=== PATIENT | female | born 1970 | race Caucasian/White ===

== ENCOUNTER 2017-02-03 20:24 | Emergency (ER) | payer BC ==
[~2017-02-03 20:24] MED LIST: ALBU8I INH; CEPH500 PO; DOXY100T PO
[2017-02-03 20:25] VITALS: BP 111/70; PULSE 68; RESP 16; TEMP 98.4; O2SAT 96
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
[2017-02-03] MEDS ORDERED: ACETAMINOPHEN 325 MG TAB PO ONE (21:15)
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
== END 2017-02-03 21:36 | disposition home or self-care (01) ==
LOC: NEPK 20:24
DX: S09.90XA Unspecified injury of head, initial encounter (principal); F17.200 Nicotine dependence, unspecified, uncomplicated; Z87.09 Personal history of other diseases of the respiratory system; Y04.2XXA Assault by strike against or bumped into by another person, initial encounter
CPT/HCPCS: 99283

== ENCOUNTER 2017-06-02 20:08 | Emergency (ER) | payer SELFPAY ==
[~2017-06-02] VITALS: Ht 172.7 cm; Wt 54.5 kg
[2017-06-02 20:10] VITALS: BP 147/90; PULSE 77; RESP 15; TEMP 98.4; O2SAT 98
--- NOTE | 2017-06-02 20:28 | PD ---
Physical Exam Time Seen by Provider: 20:26 Narrative 47yo F c/o left arm pain x 3 weeks. Says she has chronic left shoulder dislocation and degenerative arthritis. Denies injury. +numbness, tingling. Denies chest pain, SOB. Patient noted using arm while in triage. Patient seen in triage. VS reviewed. Patient awaiting bed placement. Data Data Last Documented VS Vital Signs Date Time Temp Pulse Resp B/P (MAP) Pulse Ox O2 Delivery O2 Flow Rate FiO2 06/02/17 20:10 98.4 77 15 147/90 (109) 98 Room Air MDM Supervised Visit with MARIA M: Vidhi Randhawa Jun 02, 2017 20:28
[2017-06-02] MEDS ORDERED: KETOROLAC TROMETHAMINE 60 MG/2 ML (IM) VIAL IM ONE (21:00)
--- NOTE | 2017-06-02 21:11 | PD ---
HPI Chief Complaint: Pain: Acute or Chronic Time Seen by Provider: 20:55 Travel History International Travel<30 days: No Contact w/Intl Traveler<30days: No Traveled to known affect area: No History of Present Illness HPI 47-year-old female presents for evaluation of left shoulder pain, left arm paresthesias. She reports that this is a chronic issue has been ongoing for 10 years. The paresthesias have gradually developed over the past several months. She reports that she has been diagnosed with left shoulder subluxation and degenerative joint disease. She reports that she is currently homeless, sleeping in a tent on the ground, and feels that she is reinjuring her left shoulder simply by the way she is sleeping. She denies any acute trauma. She reports that she has had worsened numbness in her left arm today and this prompted evaluation. She denies any neck pain, headache, blurred vision, slurred speech, facial droop. She has no other complaints. PFSH Past Medical History Asthma: Yes COPD: Yes Diminished Hearing: No Respiratory: Yes (asthma, emphysema, COPD) Immunizations Current: Yes Tetanus Vaccination: < 5 Years Influenza Vaccination: No ?: Not Menopausal: Yes Past Surgical History Cholecystectomy: Yes Hysterectomy: Yes Social History Alcohol Use: No Tobacco Use: Yes (1 PPD) Substance Use: Yes (marijuana) Allergies-Medications (Allergen,Severity, Reaction): Coded Allergies: adhesive (Unverified Allergy, Severe, 06/02/17) haloperidol (Unverified Allergy, Severe, Hallucinations, 06/02/17) latex (Unverified Allergy, Severe, 06/02/17) metronidazole (Unverified Allergy, Severe, Nausea/Vomiting, 06/02/17) sulfamethoxazole (Unverified Allergy, Severe, Hives, 06/02/17) sumatriptan (Unverified Allergy, Severe, Nausea/Vomiting, 06/02/17) trimethoprim (Unverified Allergy, Severe, Hives, 06/02/17) Reported Meds & Prescriptions Reported Meds & Active Scripts Active No Active Prescriptions or Reported Medications Review of Systems Except as stated in HPI: all other systems reviewed are Neg Physical Exam Narrative GENERAL: Well-developed well-nourished female in no acute distress SKIN: Warm and dry. HEAD: Atraumatic. Normocephalic. EYES: Pupils equal and round. No scleral icterus. No injection or drainage. ENT: No nasal bleeding or discharge. Mucous membranes pink and moist. NECK: Trachea midline. No JVD. CARDIOVASCULAR: Regular rate and rhythm. No murmur appreciated. RESPIRATORY: No accessory muscle use. Clear to auscultation. Breath sounds equal bilaterally. GASTROINTESTINAL: Abdomen soft, non-tender, nondistended. MUSCULOSKELETAL: No obvious deformities. Generalized tenderness to palpation to the left shoulder joint. The patient has pain with left shoulder range of motion however she has normal data center manager strength, 5 out of 5 muscle strength and arm flexion and extension bilaterally with no objective weakness. There is no tenderness to palpation along the cervical spine. She maintains full range of motion of the neck. NEUROLOGICAL: Awake and alert. No obvious cranial nerve deficits. Motor grossly within normal limits. Normal speech. Data Data Last Documented VS Vital Signs Date Time Temp Pulse Resp B/P (MAP) Pulse Ox O2 Delivery O2 Flow Rate FiO2 06/02/17 20:10 98.4 77 15 147/90 (109) 98 Room Air Orders Orders Ct Cerv Spine W/O Contrast (06/02/17 ) Shoulder, Complete (>2vws) (06/02/17 ) Ketorolac Inj (Toradol Inj) (06/02/17 21:00) MDM Medical Decision Making Medical Screen Exam Complete: Yes Emergency Medical Condition: Yes Medical Record Reviewed: Yes Differential Diagnosis Shoulder subluxation, brachial plexopathy, cervical radiculopathy, herniated nucleus pulposus, thoracic outlet syndrome, CVA Narrative Course 47-year-old female with chronic left shoulder pain for several years as well as paresthesias in her left forearm for several years presents with worsening paresthesias today. On examination she has no objective weakness in the upper extremities and she has no focal neurologic deficits. There is nothing to suggest a CVA. Her symptoms seem to be primarily related to her left shoulder pain. She reports that sleeping on the ground has been exacerbating her chronic left shoulder pain and she is requesting a sling to help raise her left shoulder up and help supported passively. The x-ray reveals no acute abnormalities. The patient refuses CT of the cervical spine and became increasingly agitated and requested to leave. While attempting to explain the reasoning behind neuro imaging of the cervical spine in relation to paresthesias/subjective weakness in the left arm, the patient became increasingly argumentative and agitated and continued to refuse any additional testing and simply wanted to leave. She shouted obscenities on her way out. She left AGAINST MEDICAL ADVICE. Diagnosis Primary Impression: Left against medical advice Med/Other Pt SpecificInfo: No Change to Meds Scripts No Active Prescriptions or Reported Meds Disposition: 07 AGAINST MEDICAL ADVICE Condition: Stable Orlnado Ayers Jun 02, 2017 21:11
--- NOTE | 2017-06-02 21:12 | RADRPT ---
EXAM DATE/TIME: 06/02/2017 21:11 [facility] COMPARISON: SHOULDER LEFT COMPLETE (>2VWS), November 08, 2015, 12:00. INDICATIONS : Shoulder pain, numbness down to left hand. MEDICAL HISTORY : None. SURGICAL HISTORY : None. ENCOUNTER: Initial ACUITY: 1 day PAIN SCORE: 0/10 LOCATION: Left shoulder FINDINGS: Multiple view examination of the left shoulder demonstrates no evidence of fracture or dislocation. The glenohumeral and acromioclavicular joints are maintained. There is normal range of motion betwee n internal and external rotation. Bony mineralization is normal. Calcified granulomas in the left phuc ng. These are stable compared to the prior study. CONCLUSION: Unremarkable and stable exam of the shoulder. Octavio Orellana MD on June 02, 2017 at 21:10 Board Certified Radiologist. This report was verified electronically.
== END 2017-06-02 22:21 | disposition left against medical advice (07) ==
LOC: NEPD 20:08
DX: M25.512 Pain in left shoulder (principal); R20.9 Unspecified disturbances of skin sensation; J45.909 Unspecified asthma, uncomplicated; J44.9 Chronic obstructive pulmonary disease, unspecified; F17.200 Nicotine dependence, unspecified, uncomplicated; Z88.2 Allergy status to sulfonamides; Z88.8 Allergy status to other drugs, medicaments and biological substances
CPT/HCPCS: 73030; 96372; 99284; J1885

== ENCOUNTER 2017-06-15 20:16 | Emergency (ER) | payer SELFPAY ==
[~2017-06-15] VITALS: Ht 175.3 cm; Wt 55.0 kg
[2017-06-15 20:17] VITALS: BP 118/78; PULSE 104; RESP 16; TEMP 99.8; O2SAT 95
[2017-06-15 21:29] LABS: BACTERIA, URINE MANY /hpf; BLOOD, URINE LARGE (NEG); COMMENT (UR) CULTURE INDICATED; CULTURE IF INDICATED CULTURE INDICATED; GLUCOSE,URINE NEG (NEG); KETONE, URINE 10 mg/dL (NEG); MUCUS URINE MANY /lpf (OCC); NITRITE,URINE NEG (NEG); SQUAMOUS EPITHELIAL CELL URINE 6 /hpf (0-5); TRANSITIONAL EPI CELLS, URINE 1 /hpf; URINE COLOR YELLOW (YELLW/STRAW)
[2017-06-15] MEDS ORDERED: ONDANSETRON HCL 4 MG/2 ML VIAL IV PUSH ONE (22:00)
[2017-06-15] MEDS ORDERED: cefTRIAXone INJ 1,000 MG in SODIUM CHLORIDE 0.9% INJ 100 ML IV ONE (22:00)
[2017-06-15] MEDS ORDERED: PHENAZOPYRIDINE HCL 200 MG TAB PO ONE (22:00)
--- NOTE | 2017-06-15 22:01 | PD ---
HPI Chief Complaint: Complaint Time Seen by Provider: 21:51 Travel History International Travel<30 days: No Contact w/Intl Traveler<30days: No Traveled to known affect area: No History of Present Illness HPI 47-year-old white female presents to emergency Department with complaints of worsening bladder infection. She states that she was seen at [facility] approximately 5 days ago she was given a prescription for Macrobid and Zofran which she has not filled yet. She states that she was given a dose of antibiotics before being discharged. She states that she has had increasing lower pelvic and bladder discomfort. She's had increased urinary frequency, urgency, nausea and decreased appetite. She states that she's not been able to eat or drink anything over last several days. She states that she is also having worsening lower back pain. Symptoms are moderate but can be more severe at times. Worse with movement. PFSH Past Medical History Asthma: Yes COPD: Yes Diminished Hearing: No Respiratory: Yes (asthma, emphysema, COPD) Immunizations Current: Yes ?: Not Menopausal: Yes Past Surgical History Cholecystectomy: Yes Hysterectomy: Yes Social History Alcohol Use: No Tobacco Use: Yes (1 PPD) Substance Use: Yes (marijuana) Allergies-Medications (Allergen,Severity, Reaction): Coded Allergies: adhesive (Unverified Allergy, Severe, 06/15/17) haloperidol (Unverified Allergy, Severe, Hallucinations, 06/15/17) latex (Unverified Allergy, Severe, 06/15/17) metronidazole (Unverified Allergy, Severe, Nausea/Vomiting, 06/15/17) sulfamethoxazole (Unverified Allergy, Severe, Hives, 06/15/17) sumatriptan (Unverified Allergy, Severe, Nausea/Vomiting, 06/15/17) trimethoprim (Unverified Allergy, Severe, Hives, 06/15/17) Reported Meds & Prescriptions Reported Meds & Active Scripts Active Zofran Odt (Ondansetron Odt) 4 Mg Tab 4 Mg SL Q6HR PRN Pyridium (Phenazopyridine HCl) 100 Mg Tab 200 Mg PO Q8H PRN 3 Days Macrobid (Nitrofurantoin Monohydrate Macrocrystals) 100 Mg Capsule 100 Mg PO BID 10 Days Review of Systems Except as stated in HPI: all other systems reviewed are Neg Physical Exam Narrative GENERAL: Well-developed, well-nourished in no acute distress. Nontoxic appearing. HEAD: Normocephalic, atraumatic. EYES: Pupils equal round and reactive. Extraocular motions intact. No scleral icterus. No injection or drainage. ENT: TMs clear without erythema. The external auditory canals clear. Nose: clear . Posterior pharynx is pink and moist. No tonsillar edema or exudate. Uvula midline. Airway patent. NECK: Trachea midline.Supple, nontender, moves head freely. No central bony tenderness or spasm. CARDIOVASCULAR: Regular rate and rhythm without murmurs, gallops, or rubs. RESPIRATORY: Clear to auscultation. Breath sounds equal bilaterally. No wheezes , rales, or rhonchi. GASTROINTESTINAL: Abdomen soft, non-tender, nondistended. No hepato-splenomegaly , or palpable masses. No guarding. EXTREMITIES: No clubbing, cyanosis, or edema. No joint tenderness, effusion, or edema noted. BACK: Patient complains of tenderness in the lower lumbar spine without deformity or crepitance. Patient has mild left flank tenderness. Data Data Last Documented VS Vital Signs Date Time Temp Pulse Resp B/P (MAP) Pulse Ox O2 Delivery O2 Flow Rate FiO2 06/15/17 20:17 99.8 104 16 118/78 (91) 95 Room Air Orders Orders Urinalysis - C+S If Indicated (06/15/17 20:48) Urine Culture (06/15/17 21:04) Complete Blood Count With Diff (06/15/17 21:55) Basic Metabolic Panel (Bmp) (06/15/17 21:55) Iv Access Insert/Monitor (06/15/17 21:55) Ceftriaxone Inj (Rocephin Inj) (06/15/17 22:00) Ondansetron Inj (Zofran Inj) (06/15/17 22:00) Phenazopyridine (Pyridium) (06/15/17 22:00) Labs Laboratory Tests Test 06/15/17 21:04 06/15/17 22:20 Urine Color YELLOW Urine Turbidity HAZY Urine pH 6.0 Urine Specific [place] 1.024 Urine Protein 100 mg/dL Urine Glucose (UA) NEG mg/dL Urine Ketones 10 mg/dL Urine Occult Blood LARGE Urine Nitrite NEG Urine Bilirubin NEG Urine Urobilinogen 2.0 MG/DL Urine Leukocyte Esterase LARGE Urine RBC 85 /hpf Urine WBC /hpf Urine Squamous Epithelial Cells 6 /hpf Urine Transitional Epithelial Cells 1 /hpf Urine Amorphous Sediment RARE Urine Bacteria MANY /hpf Urine Mucus MANY /lpf Microscopic Urinalysis Comment CULTURE INDICATED White Blood Count 10.6 TH/MM3 Red Blood Count 3.96 MIL/MM3 Hemoglobin 12.8 GM/DL Hematocrit 35.9 % Mean Corpuscular Volume 90.7 FL Mean Corpuscular Hemoglobin 32.5 PG Mean Corpuscular Hemoglobin Concent 35.8 % Red Cell Distribution Width 14.0 % Platelet Count 287 TH/MM3 Mean Platelet Volume 8.8 FL Neutrophils (%) (Auto) 67.9 % Lymphocytes (%) (Auto) 15.7 % Monocytes (%) (Auto) 15.6 % Eosinophils (%) (Auto) 0.6 % Basophils (%) (Auto) 0.2 % Neutrophils # (Auto) 7.2 TH/MM3 Lymphocytes # (Auto) 1.7 TH/MM3 Monocytes # (Auto) 1.7 TH/MM3 Eosinophils # (Auto) 0.1 TH/MM3 Basophils # (Auto) 0.0 TH/MM3 CBC Comment AUTO DIFF MDM Medical Decision Making Medical Screen Exam Complete: Yes Emergency Medical Condition: Yes Medical Record Reviewed: Yes Interpretation(s) Laboratory Tests Test 06/15/17 21:04 06/15/17 22:20 Urine Color YELLOW Urine Turbidity HAZY Urine pH 6.0 Urine Specific [place] 1.024 Urine Protein 100 mg/dL Urine Glucose (UA) NEG mg/dL Urine Ketones 10 mg/dL Urine Occult Blood LARGE Urine Nitrite NEG Urine Bilirubin NEG Urine Urobilinogen 2.0 MG/DL Urine Leukocyte Esterase LARGE Urine RBC 85 /hpf Urine WBC /hpf Urine Squamous Epithelial Cells 6 /hpf Urine Transitional Epithelial Cells 1 /hpf Urine Amorphous Sediment RARE Urine Bacteria MANY /hpf Urine Mucus MANY /lpf Microscopic Urinalysis Comment CULTURE INDICATED White Blood Count 10.6 TH/MM3 Red Blood Count 3.96 MIL/MM3 Hemoglobin 12.8 GM/DL Hematocrit 35.9 % Mean Corpuscular Volume 90.7 FL Mean Corpuscular Hemoglobin 32.5 PG Mean Corpuscular Hemoglobin Concent 35.8 % Red Cell Distribution Width 14.0 % Platelet Count 287 TH/MM3 Mean Platelet Volume 8.8 FL Neutrophils (%) (Auto) 67.9 % Lymphocytes (%) (Auto) 15.7 % Monocytes (%) (Auto) 15.6 % Eosinophils (%) (Auto) 0.6 % Basophils (%) (Auto) 0.2 % Neutrophils # (Auto) 7.2 TH/MM3 Lymphocytes # (Auto) 1.7 TH/MM3 Monocytes # (Auto) 1.7 TH/MM3 Eosinophils # (Auto) 0.1 TH/MM3 Basophils # (Auto) 0.0 TH/MM3 CBC Comment AUTO DIFF Differential Diagnosis MDM: Pyelonephritis, UTI, vaginitis Narrative Course IV access is obtained. Patient's given 1 g of Rocephin IV. Zofran 4 mg IV. Pyridium 200 mg by mouth. Patient laboratory tests 7 reviewed. This is pyelonephritis Diagnosis Primary Impression: Pyelonephritis Patient Instructions: General Instructions Additional Instructions: Rest. Increase fluids. Macrobid and Pyridium. Zofran for nausea. Follow-up with a primary care doctor in one week. Return to the ER for any problems. Med/Other Pt SpecificInfo: Prescription(s) given Scripts Ondansetron Odt (Zofran Odt) 4 Mg Tab 4 MG SL Q6HR Y for Nausea/Vomiting, #6 TAB 0 Refills Prov: Kermit Chamorro MD 06/15/17 Phenazopyridine (Pyridium) 100 Mg Tab 200 MG PO Q8H Y for DYSURIA for 3 Days, TAB 0 Refills Prov: Kermit Chamorro MD 06/15/17 Nitrofurantoin Monohydrate Macrocrystals (Macrobid) 100 Mg Capsule 100 MG PO BID for Infection for 10 Days, CAP 0 Refills Prov: Kermit Chamorro MD 06/15/17 Disposition: 01 DISCHARGE HOME Condition: Stable Speedy Guaman Jun 15, 2017 22:01
[2017-06-15 22:36] LABS: AUTOMATED NEUTROPHIL # 7.2 TH/MM3 (1.8-7.7); BASOPHIL % 0.2 % (0.0-2.0); EOSINOPHIL # 0.1 TH/MM3 (0-0.4); EOSINOPHIL % 0.6 % (0.0-4.0); HEMATOCRIT 35.9 % (35.0-46.0); LYMPH % 15.7 % (9.0-44.0); LYMPHOCYTE # 1.7 TH/MM3 (1.0-4.8); MEAN CELL VOLUME 90.7 FL (80.0-100.0); MEAN CORPUSCULAR HEMOGLOBIN 32.5 PG (27.0-34.0); MEAN CORPUSCULAR HGB CONC 35.8 % (32.0-36.0); MONO % 15.6 % (0.0-8.0); NEUT % 67.9 % (16.0-70.0); PLATELET COUNT 287 TH/MM3 (150-450); RED BLOOD COUNT 3.96 MIL/MM3 (4.00-5.30); WHITE BLOOD COUNT 10.6 TH/MM3 (4.0-11.0)
[2017-06-15] MEDS ORDERED: MACR100C2 PO (22:36)
[2017-06-15] MEDS ORDERED: PHEN0.4T PO (22:36)
[2017-06-15] MEDS ORDERED: ZOFR4TAB3 SL (22:36)
[2017-06-15 22:48] LABS: HEMO FLAGS AUTO DIFF
[2017-06-15 23:10] LABS: BICARBONATE 30.7 MEQ/L (21.0-32.0)
[2017-06-15 23:11] LABS: POTASSIUM 3.4 MEQ/L (3.5-5.1)
[2017-06-15 23:20] LABS: BANDS 1 % (0-6); EOSINOPHILS 1 % (0-4); POLYS (SEG NEUTROPHILS) 74 % (16-70); WBC DIFF SAMPLE 100
[2017-06-15 23:21] LABS: PLATELET ESTIMATE SMEAR NORMAL (NORMAL); PLATELET MORPHOLOGY NORMAL (NORMAL); SCAN/DIFF FINAL DIFF MANUAL
== END 2017-06-15 23:43 | disposition home or self-care (01) ==
LOC: NEPD 20:16
DX: N12 Tubulo-interstitial nephritis, not specified as acute or chronic (principal); R11.0 Nausea; B96.89 Other specified bacterial agents as the cause of diseases classified elsewhere; M54.5 Low back pain; Z72.0 Tobacco use
CPT/HCPCS: 80048; 81001; 85007; 85027; 87086; 96365; 96375; 99284; J0696; J2405

== ENCOUNTER 2017-09-14 20:59 | Emergency (ER) | payer SELFPAY ==
[~2017-09-14 20:59] MED LIST changes: -ALBU8I INH; -CEPH500 PO; -DOXY100T PO; +MACR100C2 PO; +PHEN0.4T PO; +ZOFR4TAB3 SL
[2017-09-14 21:00] VITALS: BP 94/60; PULSE 87; RESP 16; TEMP 98.8; O2SAT 96
--- NOTE | 2017-09-14 21:54 | RADRPT ---
EXAM DATE/TIME: 09/14/2017 21:32 [facility] COMPARISON: CHEST PA & LAT, August 30, 2015, 15:46. INDICATIONS : Short of breath and pressure when laying down. MEDICAL HISTORY : None. SURGICAL HISTORY : None. ENCOUNTER: Initial ACUITY: 2 days PAIN SCORE: 0/10 LOCATION: Bilateral chest FINDINGS: PA and lateral views of the chest demonstrate the lungs to be symmetrically aerated without evidence of mass, infiltrate or effusion. Stable calcified granuloma in the left lung since 2014. The cardiom ediastinal contours are unremarkable. Osseous structures are intact. CONCLUSION: 1. No active disease. Stable calcified granulomata in the left lung. Speedy Jalloh MD on September 14, 2017 at 21:52 Board Certified Radiologist. This report was verified electronically.
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
== END 2017-09-14 21:56 | disposition left against medical advice (07) ==
LOC: NED 20:59
DX: R06.02 Shortness of breath (principal); J44.9 Chronic obstructive pulmonary disease, unspecified; F17.210 Nicotine dependence, cigarettes, uncomplicated; Z59.0 Homelessness
CPT/HCPCS: 71020; 99282

== ENCOUNTER 2017-10-19 14:40 | Emergency (ER) | payer BC ==
[~2017-10-19] VITALS: Ht 174 cm; Wt 54.5 kg
[2017-10-19 14:42] VITALS: BP 101/66; PULSE 83; RESP 16; TEMP 98.4; O2SAT 97
--- NOTE | 2017-10-19 15:51 | PD ---
HPI Chief Complaint: Injury Time Seen by Provider: 15:18 Travel History International Travel<30 days: No Contact w/Intl Traveler<30days: No Traveled to known affect area: No History of Present Illness HPI This is a 47-year-old female here with mild right wrist pain. She reports while pushing herself up from a seated position using her arms she felt pain in her right wrist. She now has pain with flexion and extension. Denies paresthesia or weakness. Denies falling onto the wrist or trauma. Symptom severity is mild. It is alleviated with rest. PFSH Past Medical History Asthma: Yes COPD: Yes Cerebrovascular Accident: Yes (COPD, asthma) Diminished Hearing: No Respiratory: Yes (asthma, emphysema, COPD) Immunizations Current: Yes ?: Not Menopausal: Yes Past Surgical History Cholecystectomy: Yes Hysterectomy: Yes Social History Alcohol Use: No Tobacco Use: Yes (1 PPD) Substance Use: Yes (marijuana) Allergies-Medications (Allergen,Severity, Reaction): Coded Allergies: adhesive (Unverified Allergy, Severe, 06/15/17) haloperidol (Unverified Allergy, Severe, Hallucinations, 06/15/17) latex (Unverified Allergy, Severe, 06/15/17) metronidazole (Unverified Allergy, Severe, Nausea/Vomiting, 06/15/17) sulfamethoxazole (Unverified Allergy, Severe, Hives, 06/15/17) sumatriptan (Unverified Allergy, Severe, Nausea/Vomiting, 06/15/17) trimethoprim (Unverified Allergy, Severe, Hives, 06/15/17) Reported Meds & Prescriptions Reported Meds & Active Scripts Active Zofran Odt (Ondansetron Odt) 4 Mg Tab 4 Mg SL Q6HR PRN Pyridium (Phenazopyridine HCl) 100 Mg Tab 200 Mg PO Q8H PRN 3 Days Macrobid (Nitrofurantoin Monohydrate Macrocrystals) 100 Mg Capsule 100 Mg PO BID 10 Days Review of Systems Except as stated in HPI: all other systems reviewed are Neg Physical Exam Narrative GENERAL: Alert and well-appearing 47-year-old female. SKIN: Warm and dry. HEAD: Normocephalic. EYES:No injection or drainage. NECK: Supple, trachea midline. MUSCULOSKELETAL: No cyanosis, or edema. Right upper extremity: Patient points to the middle of the wrist dorsal aspect at the site of the pain. The area is nontender to palpation. No tenderness over the scaphoid. She is able to flex and extend the wrist without difficulty. 2+ radial pulse. Able to flex and extend all digits. Brisk cap refill. Data Data Last Documented VS Vital Signs Date Time Temp Pulse Resp B/P (MAP) Pulse Ox O2 Delivery O2 Flow Rate FiO2 10/19/17 14:42 98.4 83 16 101/66 (78) 97 Orders Orders Splint Or Brace Apply/Monitor (10/19/17 15:44) MDM Medical Decision Making Medical Screen Exam Complete: Yes Emergency Medical Condition: Yes Differential Diagnosis Wrist sprain, strain, fracture Narrative Course This is a 47-year-old female with mild right wrist pain. I do not suspect fracture. There is no swelling in the wrist. She has full range of motion and no bony tenderness. This appears to be in mild sprain .The wrist was immobilized with Christopher wrap. She was instructed to ice and elevate the extremity. Ibuprofen as needed for pain. Follow-up with the [facility]. Return if symptoms worsen Diagnosis Primary Impression: Wrist pain Qualified Codes: M25.531 - Pain in right wrist Referrals: [facility] Additional Instructions: Review the Christopher wrap for comfort. Ice and elevate the extremity. Tylenol or ibuprofen as needed for pain. Follow up with the [facility] Disposition: 01 DISCHARGE HOME Condition: Stable Anabelle Venegas Oct 19, 2017 15:51
== END 2017-10-19 16:11 | disposition home or self-care (01) ==
LOC: NEPK 14:40
DX: M25.531 Pain in right wrist (principal); F17.200 Nicotine dependence, unspecified, uncomplicated; Z87.09 Personal history of other diseases of the respiratory system
CPT/HCPCS: 99282

== ENCOUNTER 2017-12-23 13:56 | Emergency (ER) | payer BC | END 2017-12-23 14:45 | disposition left against medical advice (07) | LOC: NED 13:56 | DX: Z04.71 Encounter for examination and observation following alleged adult physical abuse (principal); Z53.21 Procedure and treatment not carried out due to patient leaving prior to being seen by health care provider | CPT/HCPCS: 99281 ==

== ENCOUNTER 2018-01-27 22:16 | Emergency (ER) | payer SELFPAY ==
[~2018-01-27] VITALS: Ht 172.7 cm; Wt 55.0 kg
[2018-01-27 22:29] VITALS: BP 90/57; PULSE 70; RESP 16; TEMP 98.2; O2SAT 97
[2018-01-27 23:11] LABS: AUTOMATED NEUTROPHIL # 3.8 TH/MM3 (1.8-7.7); BASOPHIL # 0.1 TH/MM3 (0-0.2); BASOPHIL % 0.8 % (0.0-2.0); EOSINOPHIL # 0.3 TH/MM3 (0-0.4); EOSINOPHIL % 3.6 % (0.0-4.0); HEMATOCRIT 34.2 % (35.0-46.0); HEMOGLOBIN 11.9 GM/DL (11.6-15.3); LYMPH % 38.6 % (9.0-44.0); LYMPHOCYTE # 3.1 TH/MM3 (1.0-4.8); MEAN CELL VOLUME 93.2 FL (80.0-100.0); MEAN CORPUSCULAR HEMOGLOBIN 32.3 PG (27.0-34.0); MEAN CORPUSCULAR HGB CONC 34.7 % (32.0-36.0); MEAN PLATELET VOLUME 8.4 FL (7.0-11.0); MONO % 9.7 % (0.0-8.0); MONOCYTE # 0.8 TH/MM3 (0-0.9); NEUT % 47.3 % (16.0-70.0); PLATELET COUNT 287 TH/MM3 (150-450); RED BLOOD COUNT 3.67 MIL/MM3 (4.00-5.30); RED CELL DISTRIBUTION WIDTH 13.9 % (11.6-17.2); WHITE BLOOD COUNT 8.1 TH/MM3 (4.0-11.0)
[2018-01-27 23:11] LABS: BACTERIA, URINE MANY /hpf; BILIRUBIN, URINE NEG (NEG); BLOOD, URINE MOD (NEG); GLUCOSE,URINE NEG (NEG); KETONE, URINE NEG (NEG); MUCUS URINE MANY /lpf (OCC); NITRITE,URINE POS (NEG); PH, URINE 5.5 (5.0-8.5); SQUAMOUS EPITHELIAL CELL URINE 2 /hpf (0-5); URINE COLOR YELLOW (YELLW/STRAW); URINE LEUKOCYTE ESTERASE LARGE (NEG)
[2018-01-27 23:20] LABS: BICARBONATE 29.6 MEQ/L (21.0-32.0); CALCIUM 9.1 MG/DL (8.5-10.1); CREATININE 1.11 MG/DL (0.50-1.00)
[2018-01-27 23:22] VITALS: BP 93/55; PULSE 63; RESP 16; O2SAT 97
--- NOTE | 2018-01-28 00:05 | PD ---
HPI Chief Complaint: Back/ Neck Pain or Injury Time Seen by Provider: 22:35 Travel History International Travel<30 days: No Contact w/Intl Traveler<30days: No Traveled to known affect area: No History of Present Illness HPI pt has back pain and UTI past cultures grew a positive for [place] Corynabacterium Turner sensitive pt very tired 2 times I came into the room and she did not awake to my voice, not toxic not septic , very tired. When I finally get her to give me a history she says it patrick when she urinates and hurts when she starts to urinate. She denies frequency but she does have dysuria. She has had urine infections in the past however her HPI and ROS are limited to the fact that she seems to be very somnolent and falls asleep care home through my HPI interview with her [facility] Past Medical History Asthma: Yes COPD: Yes Cerebrovascular Accident: Yes (COPD, asthma) Diminished Hearing: No Respiratory: Yes (asthma, emphysema, COPD) Immunizations Current: Yes Tetanus Vaccination: Unknown ?: Not Menopausal: Yes Past Surgical History Cholecystectomy: Yes Hysterectomy: Yes Other Surgery: Yes (carpal tunnel left wrist) Social History Alcohol Use: No Tobacco Use: Yes (1 PPD) Substance Use: Yes (marijuana) Allergies-Medications (Allergen,Severity, Reaction): Coded Allergies: adhesive (Unverified Allergy, Severe, 01/27/18) haloperidol (Unverified Allergy, Severe, Hallucinations, 01/27/18) latex (Unverified Allergy, Severe, 01/27/18) metronidazole (Unverified Allergy, Severe, Nausea/Vomiting, 01/27/18) sulfamethoxazole (Unverified Allergy, Severe, Hives, 01/27/18) sumatriptan (Unverified Allergy, Severe, Nausea/Vomiting, 01/27/18) trimethoprim (Unverified Allergy, Severe, Hives, 01/27/18) Reported Meds & Prescriptions Reported Meds & Active Scripts Active Pyridium (Phenazopyridine HCl) 100 Mg Tab 100 Mg PO Q8HR Levaquin (Levofloxacin) 500 Mg Tablet 500 Mg PO DAILY Zofran Odt (Ondansetron Odt) 4 Mg Tab 4 Mg SL Q6HR PRN Pyridium (Phenazopyridine HCl) 100 Mg Tab 200 Mg PO Q8H PRN 3 Days Macrobid (Nitrofurantoin Monohydrate Macrocrystals) 100 Mg Capsule 100 Mg PO BID 10 Days Review of Systems Except as stated in HPI: all other systems reviewed are Neg Gastrointestinal: Positive: Abdominal Pain Genitourinary: Positive: Frequency, Dysuria Physical Exam Narrative GENERAL: pt very sleepy and quickly fall asleep while talking to me SKIN: Warm and dry. HEAD: Atraumatic. Normocephalic. EYES: Pupils equal and round. No scleral icterus. No injection or drainage. ENT: No nasal bleeding or discharge. Mucous membranes pink and moist. NECK: Trachea midline. No JVD. CARDIOVASCULAR: Regular rate and rhythm. RESPIRATORY: No accessory muscle use. Clear to auscultation. Breath sounds equal bilaterally. GASTROINTESTINAL: Abdomen mild suprapubic pain soft, nondistended. Hepatic and splenic margins not palpable. MUSCULOSKELETAL: Extremities without clubbing, cyanosis, or edema. No obvious deformities. NEUROLOGICAL: Awake and alert. No obvious cranial nerve deficits. Motor grossly within normal limits. Five out of 5 muscle strength in the arms and legs. Normal speech. PSYCHIATRIC: Appropriate mood and affect; insight and judgment normal. Data Data Last Documented VS Vital Signs Date Time Temp Pulse Resp B/P (MAP) Pulse Ox O2 Delivery O2 Flow Rate FiO2 01/28/18 03:08 01/28/18 00:30 53 16 97 Room Air 01/27/18 22:29 98.2 Orders Orders Complete Blood Count With Diff (01/27/18 22:53) Basic Metabolic Panel (Bmp) (01/27/18 22:53) Urinalysis - C+S If Indicated (01/27/18 22:53) Urine Culture (01/27/18 22:55) Levofloxacin (Levaquin) (01/28/18 00:15) Phenazopyridine (Pyridium) (01/28/18 00:45) Ed Discharge Order (01/28/18 03:06) Labs Laboratory Tests Test 01/27/18 22:55 01/27/18 23:00 Urine Color YELLOW Urine Turbidity HAZY Urine pH 5.5 Urine Specific [place] 1.019 Urine Protein TRACE mg/dL Urine Glucose (UA) NEG mg/dL Urine Ketones NEG mg/dL Urine Occult Blood MOD Urine Nitrite POS Urine Bilirubin NEG Urine Urobilinogen LESS THAN 2.0 MG/DL Urine Leukocyte Esterase LARGE Urine RBC 3 /hpf Urine WBC 21 /hpf Urine Squamous Epithelial Cells 2 /hpf Urine Bacteria MANY /hpf Urine Mucus MANY /lpf Microscopic Urinalysis Comment CULTURE INDICATED White Blood Count 8.1 TH/MM3 Red Blood Count 3.67 MIL/MM3 Hemoglobin 11.9 GM/DL Hematocrit 34.2 % Mean Corpuscular Volume 93.2 FL Mean Corpuscular Hemoglobin 32.3 PG Mean Corpuscular Hemoglobin Concent 34.7 % Red Cell Distribution Width 13.9 % Platelet Count 287 TH/MM3 Mean Platelet Volume 8.4 FL Neutrophils (%) (Auto) 47.3 % Lymphocytes (%) (Auto) 38.6 % Monocytes (%) (Auto) 9.7 % Eosinophils (%) (Auto) 3.6 % Basophils (%) (Auto) 0.8 % Neutrophils # (Auto) 3.8 TH/MM3 Lymphocytes # (Auto) 3.1 TH/MM3 Monocytes # (Auto) 0.8 TH/MM3 Eosinophils # (Auto) 0.3 TH/MM3 Basophils # (Auto) 0.1 TH/MM3 CBC Comment DIFF FINAL Differential Comment Blood Urea Nitrogen 13 MG/DL Creatinine 1.11 MG/DL Random Glucose 94 MG/DL Calcium Level 9.1 MG/DL Sodium Level 141 MEQ/L Potassium Level 3.8 MEQ/L Chloride Level 106 MEQ/L Carbon Dioxide Level 29.6 MEQ/L Anion Gap 5 MEQ/L Estimat Glomerular Filtration Rate 52 ML/MIN [facility] Medical Decision Making Medical Screen Exam Complete: Yes Emergency Medical Condition: Yes Differential Diagnosis UTI versus pyelonephritis versus renal stone versus back pain versus radiculopathy versus other Narrative Course Patient has nitrate positive urine white cells patient in UA bactrim and pyridium PO Diagnosis Primary Impression: Urinary tract infection Qualified Codes: N30.00 - Acute cystitis without hematuria Patient Instructions: General Instructions, Urinary Tract Infection in Women ( ED) Scripts Phenazopyridine (Pyridium) 100 Mg Tab 100 MG PO Q8HR for Dysuria, #6 TAB 0 Refills Prov: Mitchel Hess MD 01/28/18 Levofloxacin (Levaquin) 500 Mg Tablet 500 MG PO DAILY for Infection, #7 TAB 0 Refills Prov: Mitchel Hess MD 01/28/18 Disposition: 01 DISCHARGE HOME Condition: Good Mitchel Hess MD Jan 28, 2018 00:05
[2018-01-28] MEDS ORDERED: LEVOFLOXACIN 750 MG TAB PO ONE (00:15)
[2018-01-28 00:30] VITALS: BP 105/80; PULSE 53; RESP 16; O2SAT 97
[2018-01-28] MEDS ORDERED: PHENAZOPYRIDINE HCL 100 MG TAB PO ONE (00:45)
[2018-01-28] MEDS ORDERED: LEVA500T33 PO (03:05)
[2018-01-28] MEDS ORDERED: PHEN0.4T PO (03:05)
== END 2018-01-28 03:13 | disposition home or self-care (01) ==
LOC: NEPC 22:16
DX: N30.00 Acute cystitis without hematuria (principal); M54.9 Dorsalgia, unspecified; B96.20 Unspecified Escherichia coli [E. coli] as the cause of diseases classified elsewhere; J45.909 Unspecified asthma, uncomplicated; J44.9 Chronic obstructive pulmonary disease, unspecified; Z72.0 Tobacco use
CPT/HCPCS: 80048; 81001; 85025; 87077; 87086; 87186; 99283